=== PATIENT | female | born 2005 | race Caucasian/White ===

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

== ENCOUNTER 2023-12-04 08:04 | Emergency (ER) | payer BC, SELFPAY ==
[2023-12-04 08:20] VITALS: BP 117/78; PULSE 110; RESP 20; TEMP 37.1; O2SAT 100; BMI 21.8
--- NOTE | 2023-12-04 08:27 | ED_ITS ---
Discharge Plan Disposition Patient Disposition: Home, Self-Care Condition: Good Prescriptions Prescriptions: New ondansetron 4 mg Tablet,Disintegrating 4 mg PO Q8H PRN (Reason: Nausea) Qty: 20 0RF No Action levocetirizine 5 mg tablet 5 mg PO DAILY buspirone 5 mg tablet 5 mg PO BID Nexplanon 68 mg implant 68 mg subdermal ONCE spironolactone 50 mg tablet 50 mg PO DAILY Referrals Follow up/Referrals: Amado Villalobos MD [Primary Care Provider] - See instructions Activity Restrictions/Add. Instructions Additional Instructions/Restrictions: Drink extra fluids with and between meals. If you have difficulty drinking, try very small amounts of water or suck on ice chips. ? Avoid fruit juices, as these do not replace minerals and can actually increase diarrhea. ? Children and adults can use sports drinks to replenish electrolytes. Younger children and infants should use products formulated for children, like oral rehydration solutions. ? Eat food in small amounts and let your stomach recover. ? Get lots of rest. You may feel tired or weak. ? No greasy or fried foods for the next 24-48 hours BRAT diet Bananas Rice Apples and [place] ? Make sure to drink plenty of liquids ? Return if needed ? Straight to ER if any life threatening symptoms ? Zofran as prescribed ? You was given an outpatient order for diarrhea panel, please collect specimen and bring back to outpatient lab then call back to the [facility] or follow up with family doctor for results ? Follow up with family doctor in the next 48-72 hours if no improvement or any worsening of symptoms Clinical Impressions Clinical Impression: Viral syndrome Stand Alone Forms Stand Alone Forms: Work/School Release Instructions Patient Instructions: Diarrhea, Nausea and Vomiting-Adult, Ondansetron Discharge ED Provider: Heydi Bingham [facility] [place] HPI General Stated complaint: v/d Time Seen by Provider: 12/04/23 08:28 History of Present Illness Provider Complaint: Patient states that she started feeling bad on Benigno and has N/V/D over the weekend and would vomit after she would eat Denies pain States that she took a Phenergan on Monday and it did help with the nausea/vomiting States that today she was still feeling nauseous so she came in to get checked Related Data Home Medications Medication Instructions Recorded Confirmed buspirone 5 mg tablet 5 mg PO BID 01/14/22 12/04/23 levocetirizine 5 mg tablet 5 mg PO DAILY 01/14/22 12/04/23 etonogestrel 68 mg subdermal 68 mg subdermal ONCE 11/29/22 12/04/23 implant (Nexplanon) spironolactone 50 mg tablet 50 mg PO DAILY 11/29/22 12/04/23 Previous Rx's Medication Instructions Recorded ondansetron 4 mg disintegrating 4 mg PO Q8H PRN Nausea #20 tabs 12/04/23 tablet Allergies Allergy/AdvReac Type Severity Reaction Status Date / Time Penicillins [PENICILLINS] Allergy Mild Verified 04/07/23 09:55 [facility] Disclaimer: The information contained in this section may have been updated after the patient was seen, as this information can be updated by other users. 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 Unspecified Eustachian tube disorder, left ear Surgical History Hx of tonsillectomy Family History Other Cancer Hypertension Social History Smoking Status: Current every day smoker smoking status start date: vapes alcohol intake: never substance use type: denies use current occupational status: student Travel in the last 8 weeks: None household members: family housing: house caffeine: No ROS Obtained: Yes All systems reviewed & no additional complaints except as documented and Yes Systems reviewed as appropriate & no additional complaints except as documented Constitutional Constitutional: Reports system reviewed and no additional complaints, except as documented, Reports as per HPI, Denies body ache, Denies chills and Denies fever(s) Eyes Eyes: Reports system reviewed and no additional complaints, except as documented and Reports as per HPI ENT Ears, Nose, Mouth, and Throat: Reports system reviewed and no additional complaints, except as documented and Reports as per HPI Cardiovascular Cardiovascular: Reports system reviewed and no additional complaints, except as documented and Reports as per HPI Respiratory Respiratory: Reports system reviewed and no additional complaints, except as documented and Reports as per HPI Gastrointestinal Gastrointestingal: Reports system reviewed and no additional complaints, except as documented, as per HPI, diarrhea, nausea and vomiting Genitourinary Female Genitourinary: Reports system reviewed and no additional complaints, except as documented and Reports as per HPI Physical Exam General General appearance: alert and in no apparent distress ENT ENT exam: Present mucous membranes moist Respiratory Respiratory exam: Present normal lung sounds bilaterally; Absent respiratory distress or wheezes Cardiovascular Cardiovascular exam: Present regular rate, normal rhythm and normal heart sounds Abdominal Exam Abdominal exam: Present soft and normal bowel sounds; Absent distention or tenderness Neurological Exam Neurological exam: Present alert, oriented X3 and normal gait Medical Decision Making Darrion Inquiry Pt receiving controlled substance: No Darrion was queried for this patient: No Lab Data Lab results reviewed: Yes I reviewed the patient's lab results. Medical Decision Narrative: No vomiting after zofran drink gatoraid and kept it down
[2023-12-04 08:38] LABS: UTC Influenza A Antigen Negative (Negative); UTC Influenza B Antigen Negative (Negative); UTC Pregnancy Test, Urine Negative (Negative)
[2023-12-04] MEDS: ONDANSETRON 4MG ODT 4 MG SL (08:55)
[2023-12-04 09:10] VITALS: BP 117/78; PULSE 110; RESP 20; TEMP 37.1; O2SAT 100
[2023-12-05 09:43] LABS: Adenovirus F 40/41, stool Not Detected (NotDetected); Campylobacter Not Detected (NotDetected); Clostridium Difficile A/B, PCR Not Detected (NotDetected); Cryptosporidium Not Detected (NotDetected); Cyclospora Cayetanesis Not Detected (NotDetected); Entamoeba histolytica Not Detected (NotDetected); Enteroaggregative E coli Not Detected (NotDetected); Enteropathogenic E coli Not Detected (NotDetected); Enterotoxigenic E coli Not Detected (NotDetected); Giardia lamblia Not Detected (NotDetected); Norovirus Not Detected (NotDetected); Plesimonas Shigalloides, PCR Not Detected (NotDetected); Rotavirus A Not Detected (NotDetected); Salmonella, PCR Not Detected (NotDetected); Sapovirus Not Detected (NotDetected); Shiga-like toxin E coli Not Detected (NotDetected); Shigella Enterovasive E coli Not Detected (NotDetected); Vibrio Cholerae Not Detected (NotDetected); Vibrio, PCR Not Detected (NotDetected); Yersinia Entercolitica, PCR Not Detected (NotDetected)
[2023-12-07 03:40] LABS: Astrovirus Detected (NotDetected)
== END 2023-12-04 09:27 | disposition home or self-care (01) ==
PROVIDERS: Emergency Provider Nurse Practitioner; PCP Family Medicine
DX: A08.32 Astrovirus enteritis (principal); R11.2 Nausea with vomiting, unspecified; R19.7 Diarrhea, unspecified; F17.210 Nicotine dependence, cigarettes, uncomplicated
CPT/HCPCS: 81025; 87507; 87804; 99212; 99214; G0463

== ENCOUNTER 2023-12-07 09:08 | Outpatient (CLI) | payer BC, SELFPAY ==
--- NOTE | 2023-12-07 09:14 | US_ITS ---
FINAL REPORT CLINICAL HISTORY: RUQ ABD PAIN COMPARISON: None FINDINGS: Sonographic images of the right upper quadrant were obtained. The pancreas is partially obscured.The liver has an unremarkable appearance. The portal vein is at the upper limits of normal measuring 13 mm. The gallbladder appears normal without evidence of gallstones.There is no evidence of biliary ductal dilatation.The common duct measures 3 mm. Limited images of the right kidney are unremarkable. IMPRESSION: Upper limits of normal portal vein. Reviewed, Interpreted and Dictated by Alfredo Kelley III, MD Transcribed by Radha Rodrigez Authenticated and [facility]
== END 2023-12-07 23:59 ==
LOC: RAD 09:08
PROVIDERS: PCP Family Medicine; Visit Provider Nurse Practitioner
DX: R10.11 Right upper quadrant pain (principal)
CPT/HCPCS: 76705

== ENCOUNTER 2024-03-21 15:56 | Outpatient (CLI) | payer BC, SELFPAY ==
--- NOTE | 2024-03-21 15:56 | US_ITS ---
PROCEDURE INFORMATION: Exam: US Right Breast, Complete Exam date and time: 03/21/2024 4:03 PM Age: 18 years old Clinical indication: RT breast lump TECHNIQUE: Imaging protocol: Complete ultrasound of all four quadrants of the right breast and the retroareolar regions, including ultrasound of the axilla when performed. COMPARISON: No relevant prior studies available. FINDINGS: ULTRASOUND: Breast ultrasound findings: Sonographic images of the right breast including the retroareolar region, all 4 quadrants and the axilla do not demonstrate any cystic masses. Questionable hypoechoic mass versus island of dense fibroglandular structures in the right 7 o'clock axis 3 cm from the nipple measuring 0.4 x 0.4 x 0.3 cm. This is in the region of palpable concern. No architectural distortion or acoustical shadowing. No skin thickening or axillary adenopathy. IMPRESSION: Palpable abnormality likely correlates with an island of dense fibroglandular structures. Questionable solid mass within the region of palpable concern. Ultrasound-guided core biopsy is recommended to ensure a benign etiology. ASSESSMENT: BI-RADS Category 4: Suspicious.
== END 2024-03-21 23:59 | disposition home or self-care (01) ==
LOC: RAD 15:56
PROVIDERS: PCP Nurse Practitioner; Visit Provider Obstetrics & Gynecology
DX: N63.10 Unspecified lump in the right breast, unspecified quadrant (principal)
CPT/HCPCS: 76641

== ENCOUNTER 2024-04-22 08:14 | Outpatient (CLI) | payer BC, SELFPAY ==
--- NOTE | 2024-04-22 08:15 | US_ITS ---
FINAL REPORT CLINICAL HISTORY: RT BREAST NODULE -- Dr. Kaya Simmons -- biopsy was not performed FINDINGS: RIGHT BREAST ULTRASOUND HISTORY: Patient is 18 years old with a family history of breast cancer in a maternal great grandmother. She palpated an area at the 6 o'clock position of the right breast that has since decreased in size. Originally, this area measured approximately 3 cm in diameter. 4 mm hypoechoic structure was identified at the 6 o'clock position right breast and biopsy is recommended. FINDINGS: 6 o'clock position right breast there is an oval, hypoechoic lesion, complex cyst versus solid mass. No posterior shadowing is identified. There appears to be a calcification in the periphery. This is probably benign and does not explain the palpable abnormality. Findings discussed with the patient and her mother. 6-month follow-up ultrasound is recommended. If this is a cyst, this may resolve by the time of the follow-up. In the meanwhile, patient will continue to do a regular self breast exam to ensure that the palpable abnormality does not enlarge and no new palpable abnormalities develop. IMPRESSION: Probably benign 4 mm hypoechoic lesion 6:00 right breast BI-RADS 3: Probably benign. RECOMMENDATION: Right 6-month follow-up ultrasound. Annual screening mammography beginning at the age of 40, unless clincially indicated sooner Results sent to the patient in layman's terms. Authenticated and ERN
== END 2024-04-22 23:59 | disposition home or self-care (01) ==
LOC: RAD 08:15
PROVIDERS: PCP Nurse Practitioner; Visit Provider Obstetrics & Gynecology
DX: N63.15 Unspecified lump in the right breast, overlapping quadrants (principal)
CPT/HCPCS: 76642

== ENCOUNTER 2024-09-14 16:13 | Emergency (ER) | payer BC, SELFPAY ==
[2024-09-14] VITALS (7 sets, daily range): BP systolic 102–149; BP diastolic 56–71; PULSE 70–96; RESP 18–19; TEMP 36.8–37.1; O2SAT 98–100; BMI 22.4; BMI 22.3
--- NOTE | 2024-09-14 16:37 | EXP.UTC ---
Discharge Plan Prescriptions Prescriptions: No Action cetirizine 10 mg tablet 10 mg PO DAILY albuterol sulfate 90 mcg/actuation HFA aerosol inhaler 2 puff INHALATION Q6HP PRN (Reason: SOA) spironolactone 50 mg tablet 50 mg PO DAILY Referrals Follow up/Referrals: Provider,Referral, MD [Primary Care Provider] - See instructions Print Language Print Language: Iraqi Discharge ED [facility] HPI General Stated complaint: severe headache,nausea,vomiting Mode of Arrival: Ambulatory Source of Information: Patient Limitations: No Limitations Time Seen by Provider: 09/14/24 16:36 Description of Symptoms (Recalled from Triage Doc. by RN): PATIENT C/O SEVERE HEADACHE WITH NAUSEA AND VOMITING THAT STARTED YESTERDAY EVENING. SHE REPORTS THIS BEING THE WORSE HEADACHE SHE HAS EVER HAD. PATIENT DENIES VISION CHANGES OR HISTORY OF MIGRAINES HEENT Symptoms (Recalled from RN notes): Yes Resp Symptoms (Recalled from RN notes): No Skin Symptoms (Recalled from RN notes): No MS Symptoms (Recalled from RN notes): No Functional Status (Recalled from RN notes): WNL History of Present Illness Provider Complaint: 19-year-old female presents for severe headache with nausea and vomiting that started last night, with dizziness. Patient states she was unable to sleep due to pain and pressure. Patient states this is the worst headache she has ever had. Patient denies any vision changes or history of migraines. Related Data Home Medications ?Medication ?Instructions ?Recorded ?Confirmed albuterol sulfate 90 mcg/actuation 2 puff inhalation Q6HP PRN SOA 09/14/24 09/14/24 aerosol inhaler cetirizine 10 mg tablet 10 mg PO DAILY 09/14/24 09/14/24 spironolactone 50 mg tablet 50 mg PO DAILY 09/14/24 09/14/24 Allergies Allergy/AdvReac Type Severity Reaction Status Date / Time Penicillins (PENICILLINS) Allergy Mild Verified 05/09/24 15:52 Worker's Comp Is this a Worker's Comp case?: No [facility] Disclaimer: The information contained in this section may have been updated after the patient was seen, as this information can be updated by other users. 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 Hearing loss IBS (irritable bowel syndrome) Surgical History , HOSPICE CARE SALES CONSULTANT) Hx of tonsillectomy Family History , HOSPICE CARE SALES CONSULTANT) Cancer Hypertension Social History , HOSPICE CARE SALES CONSULTANT) Smoking Status: Current every day smoker smoking status start date: vapes alcohol intake: never substance use type: denies use current occupational status: student household members: family housing: house caffeine: No ROS Obtained: Yes Systems reviewed as appropriate & no additional complaints except as documented Physical Exam General General appearance: alert and in no apparent distress Eye Eye exam: Present normal appearance, PERRL and EOMI ENT ENT exam: Present normal exam, normal oropharynx, mucous membranes moist and TM's normal bilaterally Respiratory Respiratory exam: Present normal lung sounds bilaterally Cardiovascular Cardiovascular exam: Present regular rate and normal rhythm Neurological Exam Neurological exam: Present alert, oriented X3, CN II-XII intact and normal gait Skin Skin exam: Present warm and intact Medical Decision Making Medical Records Medical records reviewed: Yes I reviewed the patient's medical records. Screening: Per USPSTF and CDC recommendations, given the prevalence of disease in our region, it is our hospital?s policy to screen for HIV and viral Hepatitis for all patients aged 18 and over and those with ongoing risk factors. Darrion Inquiry Pt receiving controlled substance: No Darrion was queried for this patient: No Vital Signs: 09/14/24 16:25 Temperature 98.7 F Temperature Source Oral Pulse Rate [Left Brachial] 95 H Respiratory Rate 19 Blood Pressure [Left Arm] 149/60 H Blood Pressure Mean [Left Arm] 89 Blood Pressure Source [Left Arm] Automatic Cuff Blood Pressure Position [Left Arm] Sitting 02 Sat by Pulse Oximetry 99 Oxygen Delivery Method Room Air Medical Decision Narrative: Report to January Chris patient sent to the ER for evaluation and treatment
--- NOTE | 2024-09-14 16:42 | PC.NURSE ---
PATIENT SENT TO ER PER Destiney LINDA APRN FOR FURTHER EVALUATION. REPORT GIVEN TO Destiny MADERA RN BY Destiney LINDA APRN. PATIENT AMBULATED TO ER WITH [facility] STAFF AT THIS TIME
--- NOTE | 2024-09-14 16:55 | CT_ITS ---
PROCEDURE INFORMATION: Exam: CT Head Without Contrast Exam date and time: 09/14/2024 5:54 PM Age: 19 years old Clinical indication: Other: Headache; Additional info: Worst headache TECHNIQUE: Imaging protocol: Computed tomography of the head without contrast. Radiation optimization: All CT scans at this facility use at least one of these dose optimization techniques: automated exposure control; mA and/or kV adjustment per patient size (includes targeted exams where dose is matched to clinical indication); or iterative reconstruction. COMPARISON: No relevant prior studies available. FINDINGS: Brain: Normal. No hemorrhage. Unremarkable white matter. No mass effect. Cerebral ventricles: No ventriculomegaly. Paranasal sinuses: Visualized sinuses are unremarkable. No fluid levels. Mastoid air cells: Visualized mastoid air cells are well aerated. Bones: Unremarkable. No acute fracture. Soft tissues: Unremarkable. IMPRESSION: No acute intracranial abnormality.
[2024-09-14 17:07] LABS: Urine Pregnancy, HCG Qual. Negative (Negative)
[2024-09-14] MEDS: ACETAMINOPHEN 1,000MG/100ML VIAL 1000 MG IV (17:09)
[2024-09-14] MEDS: 0.9 % SODIUM CHLORIDE 1000ML 500 ML 999 ML IV (17:09)
[2024-09-14] MEDS: diphenhydrAMINE 50MG/ML VIAL 25 MG IV (17:09)
[2024-09-14] MEDS: ONDANSETRON 4MG/2ML VIAL 4 MG IV (17:09)
--- NOTE | 2024-09-14 17:26 | ED_ITS ---
<Statement entered by Justyna Cleveland DO - 09/14/24 18:49> I was consulted by the [facility], and we discussed the complexity of the problems being addressed. I approved the treatment and management plan for this patient's care in the emergency department, thus performing a substantive portion of the medical decision making. Justyna Cleveland DO Discharge Plan Disposition Patient Disposition: Home, Self-Care Condition: Good Prescriptions Prescriptions: No Action cetirizine 10 mg tablet 10 mg PO DAILY albuterol sulfate 90 mcg/actuation HFA aerosol inhaler 2 puff INHALATION Q6HP PRN (Reason: SOA) spironolactone 50 mg tablet 50 mg PO DAILY Referrals Follow up/Referrals: Provider,Referral, MD [Primary Care Provider] - See instructions Activity Restrictions/Add. Instructions Additional Instructions/Restrictions: Increase fluids and rest. If any worsening symptoms occur please return to the ED or call my office this week. Clinical Impressions Clinical Impression: Migraine Instructions Patient Instructions: DI for Migraine Print Language Print Language: Hebrew Discharge ED Provider: Justyna Cleveland General Adult HPI <Justyna Cleveland DO - Last Filed: 09/14/24 17:26> General Chief complaint: Headache Stated complaint: severe headache,nausea,vomiting Time Seen by Provider: 09/14/24 16:36 Mode of Arrival: Ambulatory Source of Information: Patient Limitations: No Limitations Description of Symptoms (Recalled from ER Triage Doc. by RN): headache started last night around 2200. unrelieved with otc meds, also having nausea Related Data Home Medications ?Medication ?Instructions ?Recorded ?Confirmed albuterol sulfate 90 mcg/actuation 2 puff inhalation Q6HP PRN SOA 09/14/24 09/14/24 aerosol inhaler cetirizine 10 mg tablet 10 mg PO DAILY 09/14/24 09/14/24 spironolactone 50 mg tablet 50 mg PO DAILY 09/14/24 09/14/24 Allergies Allergy/AdvReac Type Severity Reaction Status Date / Time Penicillins (PENICILLINS) Allergy Mild Verified 05/09/24 15:52 <Rebecca Spear (ED), PASTRY ARTIST - Last Filed: 09/14/24 18:44> History of Present Illness HPI narrative: 19-year-old female presents to the ED today for complaint of headache that started around 2200 last night. She says that she took ibuprofen and it did not help her headache. She is tearful because this is a headache that just will not go away and it scares her. She has had a sinus infection over the past week and she is taken the medications for that. She has been having nausea and vomiting today. No fevers but has had chills. No other associated signs or symptoms. [facility] <Justyna Cleveland DO - Last Filed: 09/14/24 17:26> [facility] Disclaimer: The information contained in this section may have been updated after the patient was seen, as this information can be updated by other users. 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 Hearing loss IBS (irritable bowel syndrome) Surgical History (Reviewed 09/14/24 @ 16:38 by Kimberly Verma ([facility]), PASTRY ARTIST) Hx of tonsillectomy Family History (Reviewed 09/14/24 @ 16:38 by Kimberly Verma ([facility]), PASTRY ARTIST) Cancer Hypertension Social History (Updated 09/14/24 @ 16:40 by Kimberly Verma ([facility]), PASTRY ARTIST) Smoking Status: Current every day smoker smoking status start date: vapes alcohol intake: never substance use type: denies use current occupational status: student Travel in the last 8 weeks: None household members: family housing: house caffeine: No Other Medical History Have you received the Flu Vaccine for this season: No Have you received the Pneumonia Vaccine: No <Rebecca Spear (ED), PASTRY ARTIST - Last Filed: 09/14/24 18:44> ROS Obtained: Yes Systems reviewed as appropriate & no additional complaints except as documented Constitutional Constitutional: Reports as per HPI Physical Exam <Justyna Cleveland DO - Last Filed: 09/14/24 17:26> General General appearance: alert and in no apparent distress <Rebecca Spear (ED), PASTRY ARTIST - Last Filed: 09/14/24 18:44> General General appearance: in distress Comment: Tearful due to fear with the headache Head Head exam: atraumatic and normocephalic Eye Eye exam: Present normal appearance, PERRL and EOMI ENT ENT exam: Present normal exam, normal oropharynx and mucous membranes moist Neck Neck exam: Present normal inspection, full ROM and trachea midline Chest Chest inspection: Present normal inspection Respiratory Respiratory exam: Present normal lung sounds bilaterally Cardiovascular Cardiovascular exam: Present regular rate, normal rhythm, normal heart sounds, +S1 and +S2 Abdominal Exam Abdominal exam: Present soft and normal bowel sounds Extremities Exam Extremities exam: Present normal inspection, full ROM and normal capillary refill Neurological Exam Neurological exam: Present alert, oriented X3 and normal gait Psychiatric Psychiatric exam: Present normal affect Skin Skin exam: Present warm, dry and intact Medical Decision Making <Justyna Cleveland, DO - Last Filed: 09/14/24 17:26> Medical Records Screening: Per USPSTF and CDC recommendations, given the prevalence of disease in our region, it is our hospital?s policy to screen for HIV and viral Hepatitis for all patients aged 18 and over and those with ongoing risk factors. Vital Signs: 09/14/24 16:25 09/14/24 16:47 09/14/24 17:01 Temperature 98.7 F 98.5 F Temperature Source Oral Oral Pulse Rate 96 H Pulse Rate [Left Brachial] 95 H 83 Respiratory Rate 19 18 Blood Pressure 121/63 Blood Pressure [Left Arm] 149/60 H 113/71 Blood Pressure Mean [Left Arm] 89 85 Blood Pressure Source [Left Arm] Automatic Cuff Blood Pressure Position [Left Arm] Sitting 02 Sat by Pulse Oximetry 99 100 98 Oxygen Delivery Method Room Air Room Air 09/14/24 17:30 09/14/24 18:00 09/14/24 18:30 Temperature Temperature Source Pulse Rate 70 71 72 Pulse Rate [Left Brachial] Respiratory Rate Blood Pressure 102/62 L 120/69 107/56 L Blood Pressure [Left Arm] Blood Pressure Mean [Left Arm] Blood Pressure Source [Left Arm] Blood Pressure Position [Left Arm] 02 Sat by Pulse Oximetry 100 100 100 Oxygen Delivery Method Lab Data Lab Results 09/14/24 16:37: Urine HCG, Qual Negative 09/14/24 17:11: HIV 1&2 Antibody Rapid Nonreactive Orders (Tests/Meds): ED MEDICATIONS Discontinued Medications Generic Name Dose Route Start Last Admin Trade Name Freq PRN Reason Stop Dose Admin Acetaminophen 1,000 mg 09/14/24 17:00 09/14/24 17:09 Acetaminophen 1,000mg/100ml Vial IV 09/14/24 17:01 1,000 mg ONCE ONE Administration Diphenhydramine HCl 25 mg 09/14/24 16:56 09/14/24 17:09 Diphenhydramine 50mg/Ml Vial IV 09/14/24 16:57 25 mg ONCE ONE Administration Sodium Chloride 500 mls @ 999 mls/hr 09/14/24 16:56 09/14/24 17:09 Sod Chlor 0.9% 1000ml Bag IV 09/14/24 17:26 999 mls/hr .Q31M ONE Administration Ketorolac Tromethamine 30 mg 09/14/24 18:06 09/14/24 18:18 Ketorolac 30mg/Ml Vial IV 09/14/24 18:07 30 mg ONCE ONE Administration Ondansetron HCl 4 mg 09/14/24 16:56 09/14/24 17:09 Ondansetron 4mg/2ml Vial IV 09/14/24 16:57 4 mg ONCE ONE Administration Prochlorperazine Edisylate 5 mg 09/14/24 18:06 09/14/24 18:17 Prochlorperazine 10mg/2ml Vial IV 09/14/24 18:07 5 mg ONCE ONE Administration ORDERS Category Date Time Status CT head/brain wo con Stat Cat Scan 09/14/24 16:55 Completed HIV (1&2) Antibody Rapid Stat Lab 09/14/24 17:11 Completed Hep C Ab with Reflex to RNA Stat Lab 09/14/24 17:11 Received Urine , HCG Qual. Stat Lab 09/14/24 16:37 Completed <Rebecca Spear (ED), PASTRY ARTIST - Last Filed: 09/14/24 18:44> Darrion Inquiry Pt receiving controlled substance: No Darrion was queried for this patient: No Vital Signs: 09/14/24 16:25 09/14/24 16:47 09/14/24 17:01 Temperature 98.7 F 98.5 F Temperature Source Oral Oral Pulse Rate 96 H Pulse Rate [Left Brachial] 95 H 83 Respiratory Rate 19 18 Blood Pressure 121/63 Blood Pressure [Left Arm] 149/60 H 113/71 Blood Pressure Mean [Left Arm] 89 85 Blood Pressure Source [Left Arm] Automatic Cuff Blood Pressure Position [Left Arm] Sitting 02 Sat by Pulse Oximetry 99 100 98 Oxygen Delivery Method Room Air Room Air 11/23/24 17:30 09/14/24 18:00 09/14/24 18:30 Temperature Temperature Source Pulse Rate 70 71 72 Pulse Rate [Left Brachial] Respiratory Rate Blood Pressure 102/62 L 120/69 107/56 L Blood Pressure [Left Arm] Blood Pressure Mean [Left Arm] Blood Pressure Source [Left Arm] Blood Pressure Position [Left Arm] 02 Sat by Pulse Oximetry 100 100 100 Oxygen Delivery Method Lab Data Lab Results 09/14/24 16:37: Urine HCG, Qual Negative 09/14/24 17:11: HIV 1&2 Antibody Rapid Nonreactive Orders (Tests/Meds): ED MEDICATIONS Discontinued Medications Generic Name Dose Route Start Last Admin Trade Name Freq PRN Reason Stop Dose Admin Acetaminophen 1,000 mg 09/14/24 17:00 09/14/24 17:09 Acetaminophen 1,000mg/100ml Vial IV 09/14/24 17:01 1,000 mg ONCE ONE Administration Diphenhydramine HCl 25 mg 09/14/24 16:56 09/14/24 17:09 Diphenhydramine 50mg/Ml Vial IV 09/14/24 16:57 25 mg ONCE ONE Administration Sodium Chloride 500 mls @ 999 mls/hr 09/14/24 16:56 09/14/24 17:09 Sod Chlor 0.9% 1000ml Bag IV 09/14/24 17:26 999 mls/hr .Q31M ONE Administration Ketorolac Tromethamine 30 mg 09/14/24 18:06 09/14/24 18:18 Ketorolac 30mg/Ml Vial IV 09/14/24 18:07 30 mg ONCE ONE Administration Ondansetron HCl 4 mg 09/14/24 16:56 09/14/24 17:09 Ondansetron 4mg/2ml Vial IV 09/14/24 16:57 4 mg ONCE ONE Administration Prochlorperazine Edisylate 5 mg 09/14/24 18:06 09/14/24 18:17 Prochlorperazine 10mg/2ml Vial IV 09/14/24 18:07 5 mg ONCE ONE Administration ORDERS Category Date Time Status CT head/brain wo con Stat Cat Scan 09/14/24 16:55 Completed HIV (1&2) Antibody Rapid Stat Lab 09/14/24 17:11 Completed Hep C Ab with Reflex to RNA Stat Lab 09/14/24 17:11 Received Urine , HCG Qual. Stat Lab 09/14/24 16:37 Completed Medical Decision Narrative: Insert review patient is a 19-year-old female presenting to the emergency department for evaluation of migraine. Patient is hemodynamically stable and nontoxic-appearing upon arrival, afebrile. Differential diagnosis includes migraine, headache among others. Workup will be conducted with CT scan. Init ial inventions include crystalloid bolus, analgesic. Initial workup reviewed by me remarkable for nothing acute likely migrainous in nature. Imaging informally interpreted by me and remarkable for nothing acute. Formal imaging read remarkable for nothing acute. Upon repeat evaluation patient's pain is improved. Critical Care <Rebecca Spear (ED), PASTRY ARTIST - Last Filed: 09/14/24 18:44> Critical Care Time Critical Care Time: No
[2024-09-14 18:01] LABS: HIV (1&2) Antibody Rapid NONREACTIVE (NONREACTIVE)
[2024-09-14] MEDS: PROCHLORPERAZINE 10MG/2ML VIAL 5 MG IV (18:17)
[2024-09-14] MEDS: KETOROLAC 30MG/ML VIAL 30 MG IV (18:18)
[2024-09-17 06:52] LABS: HCV Ab Non Reactive (Non Reactive)
== END 2024-09-14 18:51 | disposition home or self-care (01) ==
LOC: UTC 16:17 → ER 16:42
PROVIDERS: Nurse Practitioner; Emergency Provider Emergency Medicine
DX: G43.909 Migraine, unspecified, not intractable, without status migrainosus (principal); R11.2 Nausea with vomiting, unspecified
CPT/HCPCS: 70450; 81025; 86803; 87389; 96361; 96374; 96375; 99284; J0131; J0780; J1200; J1885; J2405; J7030

== ENCOUNTER 2024-09-20 08:29 | Emergency (ER) | payer BC, SELFPAY ==
--- NOTE | 2024-09-20 08:32 | XR_ITS ---
FINAL REPORT CLINICAL HISTORY: twisted ankle and foot, pain and swelling COMPARISON: None FINDINGS: AP, oblique, and lateral views of the right ankle were obtained. There is no fracture or dislocation. The ankle mortise is intact. Soft tissues are unremarkable. IMPRESSION: No acute osseous abnormality of the right ankle. Reviewed, Interpreted and Dictated by Rosa Linton MD Transcribed by Carly Ricardo Authenticated and [facility]
--- NOTE | 2024-09-20 08:32 | XR_ITS ---
FINAL REPORT CLINICAL HISTORY: twisted ankle and foot x 3 days ago, pain and swelling on lateral aspect of foot COMPARISON: None FINDINGS: AP, oblique and lateral views of the right foot were obtained. There is a nondisplaced fracture at the base of the fifth metatarsal. There is no additional acute osseous abnormality. The joint spaces are preserved. There is soft tissue edema along the lateral foot. IMPRESSION: Nondisplaced fracture of the base of the fifth metatarsal. Reviewed, Interpreted and Dictated by Rosa Linton MD Transcribed by Carly Ricardo Authenticated and . [facility]
[2024-09-20 09:01] VITALS: BP 120/78; PULSE 73; RESP 18; TEMP 37.2; O2SAT 98; BMI 21.6
--- NOTE | 2024-09-20 09:35 | ED_ITS ---
Discharge Plan Disposition Patient Disposition: Home, Self-Care Condition: Good Prescriptions Prescriptions: New ibuprofen 600 mg tablet 600 mg PO Q6HP PRN (Reason: Mild Pain) Qty: 30 0RF No Action spironolactone 50 mg tablet 50 mg PO DAILY cetirizine 10 mg tablet 10 mg PO DAILY buspirone 5 mg tablet PO DAILY Referrals Follow up/Referrals: Rebecca Spear APRN [Primary Care Provider] - See instructions Starla Del Valle DPM [Staff Physician] - See instructions Activity Restrictions/Add. Instructions Additional Instructions/Restrictions: Rest the extremity, apply ice for 15 minutes as tolerated three or four times per day, Elevate the extremity as tolerated while you are resting. Take ibuprofen for pain. I sent in a prescription to your pharmacy. Follow up with Dr. Del Valle (podiatry). I put in a referral but you need to call her office and schedule an appointment. Follow up with your regular doctor. GO TO THE ER FOR ANY WORSENING SYMPTOMS Clinical Impressions Clinical Impression: Closed nondisplaced fracture of fifth right metatarsal bone Qualifiers: Encounter type: initial encounter Qualified Code(s): S92.354A - Nondisplaced fracture of fifth metatarsal bone, right foot, initial encounter for closed fracture Instructions Patient Instructions: DI for Foot Fracture Print Language Print Language: Telugu Discharge ED Provider: Beau Marshall [facility] General Stated complaint: R foot injury Mode of Arrival: Ambulatory Source of Information: Patient Time Seen by Provider: 09/20/24 09:35 Description of Symptoms (Recalled from Triage Doc. by RN): RIGHT FOOT INJURY HEENT Symptoms (Recalled from RN notes): No Resp Symptoms (Recalled from RN notes): No Skin Symptoms (Recalled from RN notes): No MS Symptoms (Recalled from RN notes): Yes Functional Status (Recalled from RN notes): WNL History of Present Illness Provider Complaint: She states that 2 days ago she twisted her right foot and ankle. Since then she has had right foot and ankle pain, swelling and bruising. Related Data Home Medications ?Medication ?Instructions ?Recorded ?Confirmed buspirone 5 mg tablet mg PO DAILY 09/23/24 09/23/24 cetirizine 10 mg tablet 10 mg PO DAILY 09/23/24 09/23/24 spironolactone 50 mg tablet 50 mg PO DAILY 09/23/24 09/23/24 Previous Rx's ?Medication ?Instructions ?Recorded ibuprofen 600 mg tablet 600 mg PO Q6HP PRN Mild Pain #30 09/20/24 tabs Allergies Allergy/AdvReac Type Severity Reaction Status Date / Time Penicillins (PENICILLINS) Allergy Mild Verified 09/23/24 08:39 Worker's Comp Is this a Worker's Comp case?: No [facility] Disclaimer: The information contained in this section may have been updated after the patient was seen, as this information can be updated by other users. 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 Hearing loss IBS (irritable bowel syndrome) Surgical History Hx of tonsillectomy Family History Other Cancer Hypertension Social History Smoking Status: Current every day smoker smoking status start date: vapes alcohol intake: never substance use type: denies use current occupational status: student Travel in the last 8 weeks: None household members: family housing: house current occupation: Teacher caffeine: No ROS Obtained: Yes All systems reviewed & no additional complaints except as documented Constitutional Constitutional: Denies chills and Denies fever(s) Eyes Eyes: Denies eye discharge ENT Ears, Nose, Mouth, and Throat: Denies dizziness, Denies otalgia and Denies sore throat Cardiovascular Cardiovascular: Denies chest pain Respiratory Respiratory: Denies shortness of breath, Denies chest congestion, Denies cough, Denies stridor and Denies wheezing Gastrointestinal Gastrointestingal: Denies nausea or vomiting Musculoskeletal Musculoskeletal: Reports as per HPI Integumentary/Breasts Skin/Breast: Denies rash Neurologic Neurologic: Denies dizziness and Denies paresthesias Allergic/Immunologic Allergic/Immunologic: Denies wheezing Physical Exam General General appearance: alert and in no apparent distress Head Head exam: atraumatic, normocephalic and normal inspection Eye Eye exam: Present normal appearance, PERRL and EOMI ENT ENT exam: Present normal exam, normal oropharynx, mucous membranes moist, TM's normal bilaterally and normal external ear exam Neck Neck exam: Present normal inspection, full ROM and trachea midline; Absent meningismus or lymphadenopathy Chest Chest inspection: Present normal inspection and symmetric chest wall rise; Absent tenderness Respiratory Respiratory exam: Present normal lung sounds bilaterally; Absent respiratory distress Cardiovascular Cardiovascular exam: Present regular rate and normal rhythm; Absent JVD Abdominal Exam Abdominal exam: Present soft and normal bowel sounds; Absent distention, tenderness or guarding Extremities Exam Extremities exam: Present normal capillary refill; Absent calf tenderness Expanded Lower Extremity Exam Right: Knee exam: Present normal inspection, full ROM and knee extension intact; Absent tenderness Lower leg exam: Present normal inspection, full ROM and Achilles tendon intact; Absent tenderness or Homans' sign Ankle exam: Present full ROM, tenderness and swelling; Absent abrasion, laceration, ecchymosis, deformity, crepitus, dislocation, erythema, tenderness over talofibular lig or anterior draw sign Foot/toe exam: Present tenderness, swelling, ecchymosis and tenderness at base of 5th metatarsal; Absent full ROM, abrasion, laceration, deformity, crepitus, dislocation, erythema, amputation, puncture wound, foreign body, calcaneal tenderness, nail avulsion or subungual hematoma Neurovascular/Tendon exam: Present normal capillary refill, normal 2-point discrimination and normal fine/light touch; Absent pulse deficit, motor deficit, sensory deficit, tendon deficit, extremity cold to touch or pallor Gait: observed and limited by pain Back Exam Back exam: Present normal inspection; Absent tenderness Neurological Exam Neurological exam: Present alert and oriented X3 Psychiatric Psychiatric exam: Present normal affect and normal mood Skin Skin exam: Present warm, dry, intact and normal color Lymphatic Lymphatic Findings: no adenopathy Medical Decision Making Medical Records Medical records reviewed: No I reviewed the patient's medical records. Screening: Per USPSTF and CDC recommendations, given the prevalence of disease in our region, it is our hospital?s policy to screen for HIV and viral Hepatitis for all patients aged 18 and over and those with ongoing risk factors. Darrion Inquiry Pt receiving controlled substance: No Vital Signs: 09/20/24 09:01 Temperature 98.9 F Temperature Source Oral Pulse Rate [Left Radial] 73 Respiratory Rate 18 Blood Pressure [Left Arm] 120/78 Blood Pressure Mean [Left Arm] 92 02 Sat by Pulse Oximetry 98 Orders (Tests/Meds): ORDERS Category Date Time Status XR ankle RT min 3V Stat Exams 09/20/24 08:32 Completed XR foot RT min 3V Stat Exams 09/20/24 08:32 Completed Radiology Data #1: Image(s): Foot/Toes Image Reviewed: Yes I reviewed the patient's radiology image and Yes I have reviewed radiologist's interpretation Preliminary Findings: Abnormal Accession No. : [id number] Patient Name / ID : CINDY HOFF / [id number] Exam Date : 09/20/2024 08:31:43 ( Final ) Study Comment : Sex / Age : F / 19Y Creator : ROSA JOSEPH Dictator : Financial Risk Manager : Fur Mixer : ROSA JOSEPH Approver2 : Report Date : 09/20/2024 09:28:51 My Comment : FINAL REPORT CLINICAL HISTORY: twisted ankle and foot x 3 days ago, pain and swelling on lateral aspect of foot COMPARISON: None FINDINGS: AP, oblique and lateral views of the right foot were obtained. There is a nondisplaced fracture at the base of the fifth metatarsal. There is no additional acute osseous abnormality. The joint spaces are preserved. There is soft tissue edema along the lateral foot. IMPRESSION: Nondisplaced fracture of the base of the fifth metatarsal. Reviewed, Interpreted and Dictated by Rosa Joseph MD Transcribed by Carly Ricardo Authenticated and [facility] Procedures Risk/Benefits of Procedure(s) Were Explained: Yes Orthopedic Splinting/Casting Injury #1: Side: right Lower Extremity Injury Location: lower leg, ankle and foot Lower Extremity Immobilizer: boot orthosis and applied by nurse/dr siu Post Cast/Splinting Neuro Status: intact and no change Post Cast/Splinting Vasc Status: intact and no change
[2024-09-20 09:55] VITALS: BP 120/78; PULSE 73; RESP 18; TEMP 37.2
== END 2024-09-20 10:15 | disposition home or self-care (01) ==
PROVIDERS: Emergency Provider Nurse Practitioner Family; PCP Nurse Practitioner
DX: S92.354A Nondisplaced fracture of fifth metatarsal bone, right foot, initial encounter for closed fracture (principal); X50.0XXA Overexertion from strenuous movement or load, initial encounter
CPT/HCPCS: 29515; 73610; 73630; 99214; G0382

== ENCOUNTER 2024-10-08 08:29 | Outpatient (CLI) | payer OTHER, SELFPAY ==
--- NOTE | 2024-10-08 08:34 | XR_ITS ---
FINAL REPORT CLINICAL HISTORY: Foot pain, 2 week fx f/u COMPARISON: 09/20/2024 FINDINGS: RIGHT FOOT 3 views of the right foot were obtained. There is a transverse, nondisplaced fracture at the base of the fifth metatarsal, similar to prior exam. Remaining osseous structures are intact. Visualized joint spaces are normally aligned. Soft tissues are unremarkable. IMPRESSION: Transverse, nondisplaced fracture at the base of the fifth metatarsal, similar to prior exam. Reviewed, Interpreted and Dictated by David Negro MD Transcribed by Trice Bonner Authenticated and [facility]
== END 2024-10-08 23:59 | disposition home or self-care (01) ==
LOC: RAD 08:32
PROVIDERS: PCP Nurse Practitioner; Visit Provider Podiatrist
DX: M79.671 Pain in right foot (principal)
CPT/HCPCS: 73630

== ENCOUNTER 2024-10-31 08:37 | Outpatient (CLI) | payer BC, SELFPAY ==
--- NOTE | 2024-10-31 08:42 | XR_ITS ---
FINAL REPORT CLINICAL HISTORY: right 5th met fracture FINDINGS: Right foot Three views were obtained. There is a transverse lucency through the base of the fifth metatarsal consistent with healing fracture. IMPRESSION: Healing fracture as above. Reviewed, Interpreted and Dictated by Judah Umanzor MD Transcribed by Tania Chiu Authenticated and [facility]
== END 2024-10-31 23:59 | disposition home or self-care (01) ==
PROVIDERS: PCP Nurse Practitioner; Visit Provider Podiatrist
DX: M79.671 Pain in right foot (principal); S92.354A Nondisplaced fracture of fifth metatarsal bone, right foot, initial encounter for closed fracture
CPT/HCPCS: 73630

== ENCOUNTER 2024-11-08 06:57 | Outpatient (CLI) | payer OTHER, SELFPAY ==
--- NOTE | 2024-11-08 06:58 | CT_ITS ---
FINAL REPORT TECHNIQUE: Thin section axial CT images with coronal and sagittal reformats were performed. This study was performed with techniques to keep radiation doses as low as reasonably achievable (ALARA). Individualized dose reduction techniques using automated exposure control or adjustment of mA and/or kV according to the patient's size were employed. CLINICAL HISTORY: evaluate fifth metatarsal fracture COMPARISON: None FINDINGS: CT RIGHT FOOT: There is a transverse fracture of the lateral half of the base of the fifth metatarsal. There is 1 mm of separation between the bony fragments. The margins of the lucency are sclerotic, consistent with a nonunion. The joint is intact. 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 Reviewed, Interpreted and Dictated by David Negro MD Transcribed by Eloina Shay Authenticated and [facility]
== END 2024-11-08 23:59 | disposition home or self-care (01) ==
LOC: RAD 06:58
PROVIDERS: PCP Nurse Practitioner; Visit Provider Podiatrist
DX: M79.671 Pain in right foot (principal); S92.354D Nondisplaced fracture of fifth metatarsal bone, right foot, subsequent encounter for fracture with routine healing
CPT/HCPCS: 73700

== ENCOUNTER 2024-12-20 08:37 | Outpatient (CLI) | payer OTHER, BC, SELFPAY ==
--- NOTE | 2024-12-20 08:40 | XR_ITS ---
FINAL REPORT CLINICAL HISTORY: foot pain 11-26-24 fx of base of 5th metatarsal, no surgery COMPARISON: 10/31/2024 FINDINGS: RIGHT FOOT Three views demonstrate a transverse fracture line of the base of the fifth metatarsal which remains evident when compared to the prior exam. There is slight sclerosis of the fracture line now present. There is a radiolucent gap between the fracture fragments of 1 cm. The joint spaces appear normal. 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 Reviewed, Interpreted and Dictated by David Negro MD Transcribed by Eloina Shay Authenticated and . [facility]
== END 2024-12-20 23:59 | disposition home or self-care (01) ==
LOC: RAD 08:39
PROVIDERS: PCP Nurse Practitioner; Visit Provider Podiatrist
DX: M79.671 Pain in right foot (principal); S92.354K Nondisplaced fracture of fifth metatarsal bone, right foot, subsequent encounter for fracture with nonunion
CPT/HCPCS: 73630

== ENCOUNTER 2025-01-12 11:30 | Outpatient (CLI) | payer BC, SELFPAY | END 2025-01-12 23:59 | disposition home or self-care (01) | LOC: LAB.DROPOF 01-13 13:05 | PROVIDERS: PCP Student in an Organized Health Care Education/Training Program; Visit Provider Student in an Organized Health Care Education/Training Program | DX: N39.0 Urinary tract infection, site not specified (principal) | CPT/HCPCS: 87086 ==

== ENCOUNTER 2025-01-20 17:00 | Outpatient (RCR) | payer OTHER, BC, SELFPAY ==
--- NOTE | 2025-01-06 18:30 | HMH.PTOPEV ---
PT Outpatient Evaluation Rehab PT Outpatient Evaluation Start: 01/06/25 16:01 Freq: Status: Active Protocol: Document 01/06/25 16:03 JAMIEMIKEL (Rec: 01/06/25 18:30 PAUL [id number]) E-signed By Justyna Nicolas, PT Outpatient Therapy Subjective History Subjective History Pt is a 19 y/o female who reports she fractured her base of her right 5th metatarsal by stepping off a step stool and severely rolling her ankle at work on 09/17/24. Pt reports she was NWB in a boot from September to November with progression to WBAT in the boot. Pt states she recently transitioned to FWB in a tennis shoe 2 weeks ago and returned to work on 12/31 with good tolerance. Pt denies true pain, but reports lateral tenderness/discomfort at the end of the day. Pt also reports weakness of the R ankle,, difficulty standing on one leg when she is getting dressed in the morning and discomfort with twisting/ pivoting on the R leg. Pt reports she also like to dance with her kids at work which she has tried without noted pain but reports slight instability of the R ankle with this. 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 Pt states she is using a bone stimulator as prescribed to assist with healing. Pt denies swelling or paresthesia. Pt denies further comorbidities to report. Pt reports she returns to Dr. Del Valle on for her next follow-up visit. Occupation: [employer] New diagnosis of cancer in past 12 No months? Chief Complaint Pain,Weakness Symptom Type Ache,Dull Symptoms Relieved By Rest/Positioning,Ice Symptoms Aggravated By Physical Activity,Twisting Current Functional Limitations Dressing,Recreation Activity, Stairs,Balance Symptom Description Intermittent Level of pain today (0-10) 5 Pain scale - at its best (0-10) 0 Pain scale - at its worst (0-10) 7 Hip/Knee Eval MMT right Hip Flexion Strength Grade 4 Good Hip Abduction Strength Grade 4 Good Hip Adduction Strength Grade 4 Good Hip Extension Strength Grade 4 Good Ankle/Foot Eval Gait Observation General Gait Pattern Observation No Deviations/Normal Assistive Device Ambulation Assistive Device None Palpation Tenderness right Ankle/Foot Palpation Overall Comment no TTP noted ROM Ankle/Foot Dorsiflexion w/Knee Extended 15 Active Range Motion (degrees) Ankle/Foot Plantar Flexion Active Range 40 of Motion (degrees) Ankle/Foot Eversion Active Range of 12 Motion (degrees) Ankle/Foot Inversion Active Range of 25 Motion (degrees) MMT Ankle Dorsiflexion Strength Grade 4- Good- Ankle Plantarflexion Strength Grade 4- Good- Foot Eversion Strength Grade 4- Good- Foot Inversion Strength Grade 4- Good- Special Tests Ankle Anterior Drawer Test Negative Right Talar Tilt Test Negative Right Ankle Posterior Drawer Test Negative Right Foot/Heel Tap/Percussion Test Negative Right Lower Extremity Functional Index Activities Today, do you or would you have any difficulty at all with: a.Any of your usual work, housework or No difficulty school activities b. Your usual hobbies, recreational or No difficulty sporting activities c. Getting into or out of the bath No difficulty d. Walking between rooms No difficulty e. Putting on your shoes or socks No difficulty f. Squatting No difficulty g. Lifting an object, like a bag of No difficulty groceries from the floor h. Performing light activities around No difficulty your home i. Performing heavy activities around No difficulty your home j. Getting into or out of a car No difficulty k. Walking 2 blocks A little bit of difficulty l. Walking a mile Moderate difficulty m. Going up or down 10 stairs (about 1 No difficulty flight of stairs) n. Standing for 1 hour No difficulty o. Sitting for 1 hour No difficulty p. Running on even ground A little bit of difficulty q. Running on uneven ground Moderate difficulty r. Making sharp turns while running fast Moderate difficulty s. Hopping No difficulty t. Rolling over in bed No difficulty LEFI Score Lower Extremity Functional Index Score 72 Outpatient Therapy Assessment Impairments Problems/Impairmments Impaired Range of Motion, Impaired Strength,Impaired Dressing,Impaired Stair Climbing,Impaired Recreational Activities,Impaired Running, Impaired Jumping,Impaired Work Activities,Impaired Balance, Subjective C/O Pain,Impaired Self Care/Self Management Prognosis Rehab Potential Good Clinical Impression Consistent with Diagnosis Yes Short Term Goals Number of Weeks 3 Increase Strength Yes: Improve R ankle MMT by half grade to assist with function/stability Improve Gait Pattern without Assistive No Device Improve Ability to Dress Self Yes: perform lower body dressing without LOB/pain to assist with ADLs Improve Balance Yes: Tandem unstable surface EO x30 without LOB to dec fall/reinjury risk Decrease Subjective C/O Pain Yes: Improve pain at worst to 5/10 to improve overall QOL Improve Self Care/Self Management Yes Patient to be Ind w/ HEP Yes Crutching Contractor Goals Number of Weeks 6 Increase Range of Motion Yes: Improve R ankle PF AROM to 45 Increase Strength Yes: Improve RLE MMT to 4+-5/5 grossly to assist with function Improve Ability to Climb Stairs Yes: 1 flight reciprocally without pain to assist with community navigation Improve Balance Yes: SLS unstable surface EO x30 without LOB to dec fall/ reinjury risk Improve LEFI Score Yes Decrease Subjective C/O Pain Yes: Improve pain at worst to 3/10 to improve overall QOL Outpatient Therapy Plan of Care Treatment Plan May Include Therapeutic Exercise Including Home Yes Exercise Program Manual Therapy Techniques Yes Neuromuscular Re-education Yes Therapeutic Activities to Return to Yes Previous Functional/Work Level Gait Training Yes ADL/Self Care Education Yes Thermal Modalities Yes Electrical Stimulation Yes Ultrasound/Phonophoresis Yes Iontophoresis Yes Orthotics/Bracing/Splinting Yes Vasopneumatic Compression Pump Yes Massage Yes Manual Lymphatic Drainage Yes Wound Care Yes Eval/Re-Eval Yes Frequency Times per week 2 Duration Number of Weeks 4-6 Addendums This patient is a candidate for social No or vocational rehab? Patient/Guardian verbally acknowledges Yes understanding of treatment program and consents to further treatment? Patient/Guardian verbally acknowledges Yes understanding of diagnosis, prognosis and goals for treatment? Eval Complexity PT Charges 20403 - Low Complexity Shoulder/Elbow Eval Shoulder Objective Measurements Elbow Objective Measurements PHYSICIAN CERTIFICATION: I certify the specified therapy services for Josh Lopes are required, authorized, and reviewed every 30 days.
== END 2025-01-20 23:59 | disposition home or self-care (01) ==
LOC: PT 17:00
PROVIDERS: Visit Provider Podiatrist
DX: S93.491A Sprain of other ligament of right ankle, initial encounter (principal); S92.354K Nondisplaced fracture of fifth metatarsal bone, right foot, subsequent encounter for fracture with nonunion
CPT/HCPCS: 97110; 97112; 97163

== ENCOUNTER 2025-01-31 17:10 | Outpatient (CLI) | payer BC, SELFPAY ==
--- NOTE | 2025-01-31 17:15 | XR_ITS ---
PROCEDURE INFORMATION: Exam: XR Right Foot Complete; Alignment Exam date and time: 01/31/2025 5:16 PM Age: 19 years old Clinical indication: Pain; Foot; Right 5th metatarsal fracture back in aug 2024 TECHNIQUE: Imaging protocol: Radiologic exam of the right foot. Views: 3 or more views. COMPARISON: CR XR FOOT WT BEARING RT 3V 12/20/2024 8:46 AM FINDINGS: Bones/joints: There is no evidence of acute fracture.There is no evidence of malalignment or dislocation. Fifth metatarsal fracture has healed in good alignment. Soft tissues: Normal. IMPRESSION: 1. There is no evidence of acute fracture.There is no evidence of malalignment or dislocation. 2. Fifth metatarsal fracture has healed in good alignment.
== END 2025-01-31 23:59 | disposition home or self-care (01) ==
LOC: RAD 17:12
PROVIDERS: PCP Nurse Practitioner; Visit Provider Podiatrist
DX: M79.671 Pain in right foot (principal); S92.354K Nondisplaced fracture of fifth metatarsal bone, right foot, subsequent encounter for fracture with nonunion
CPT/HCPCS: 73630

== ENCOUNTER 2025-02-05 17:00 | Outpatient (RCR) | payer OTHER, BC, SELFPAY ==
--- NOTE | 2025-02-05 17:30 | HMH.RHREAS ---
Rehab Reassessment Rehab OP Re-assessment Start: 01/23/25 17:15 Freq: Status: Active Protocol: Document 02/05/25 17:23 PHORNE (Rec: 02/05/25 17:30 PHORNE [id number]) E-signed By Saúl Mitchell, PT Lower Extremity Functional Index Activities Today, do you or would you have any difficulty at all with: a.Any of your usual work, housework or No difficulty school activities b. Your usual hobbies, recreational or No difficulty sporting activities c. Getting into or out of the bath No difficulty d. Walking between rooms No difficulty e. Putting on your shoes or socks No difficulty f. Squatting A little bit of difficulty g. Lifting an object, like a bag of No difficulty groceries from the floor h. Performing light activities around No difficulty your home i. Performing heavy activities around A little bit of difficulty your home j. Getting into or out of a car No difficulty k. Walking 2 blocks No difficulty l. Walking a mile A little bit of difficulty m. Going up or down 10 stairs (about 1 No difficulty flight of stairs) n. Standing for 1 hour No difficulty o. Sitting for 1 hour No difficulty p. Running on even ground No difficulty q. Running on uneven ground A little bit of difficulty r. Making sharp turns while running fast A little bit of difficulty s. Hopping A little bit of difficulty t. Rolling over in bed No difficulty LEFI Score Lower Extremity Functional Index Score 74 Rehab Re-assessment Subjective Subjective Pt reports her foot feels much better overall, denies any pain or new issues of note. No c/o with any activity except standing on her R leg and putting her other leg in her pants. Objective Objective Notes MMT: R ankle grossly 5/5 throughout without pain. AROM R ankle (in deg): DF 0-14 , PF 0-41, INV 0-40, EVER 0-21 . TTP: 0/4 R lateral foot at this time. LEFS 74 this date vs 72 on IE Assessment Progress Assessment Progressing as Expected Assessment Notes Pt has shown significant improvement in R ankle strength, R ankle ROM, and balance in SLS on the R LE. She has no c/o pain with any normal daily activity and only mild difficulty with difficult balance tasks for every day life. Currently she is appropriate to d/c form skilled therapy services with continuation of HEP as advanced. Patient goals met ST/6 LT/6 Plan Plan Will d/c at this time with HEP . Frequency of Therapy 0 Duration of therapy 0 Time and Billing Re-Eval Time 13 Charge for PT reassessment? Yes PHYSICIAN CERTIFICATION: I certify the specified therapy services for [place] are required, authorized, and reviewed every 30 days.
== END 2025-02-05 23:59 | disposition home or self-care (01) ==
LOC: PT 17:00
PROVIDERS: Visit Provider Podiatrist
DX: S93.491A Sprain of other ligament of right ankle, initial encounter (principal); S92.354K Nondisplaced fracture of fifth metatarsal bone, right foot, subsequent encounter for fracture with nonunion
CPT/HCPCS: 97110; 97112; 97164

== ENCOUNTER 2025-04-07 17:16 | Outpatient (CLI) | payer OTHER, SELFPAY ==
--- OUTSIDE RECORDS SUMMARY | 2025-04-07 17:23 | XMS_ITS | Encounter Summary ---
Author Organization Healthcare Address [address] [place] [address] Care Team Providers Care Extension Division Director Name Role Phone Pcp, No Primary Care Provider Unavailabl e Encounter Details Date Type Department Care Team (Late st Contact Info) Description 03/21/2024 Orders Only External Location [address] [place] [address] Susannah Ventura, DO [address] [facility] [address], [place] [id number] Social History Tobacco Use Types Packs/Day Years Used Date Smoking Tobacco: Never Assessed Comments Unknown Sex and Gender Information Value Date Recorded Sex Assigned at Not on file Legal Sex Female 8:45 AM EDT Gender Identity Not on file Sexual Orientation Not on file documented as of this encounter Plan of Treatment Upcoming Encounters Date Type Department Care Team (Late st Contact Info) Description 08/25/2025 11:00 AM EST Office Visit Obstetrics & Gynecology [address] [place] [address] Becca George, ARRESTING GEAR OPERATOR, CNM [address] [facility] [address] [place] [address] documented as of this encounter Procedures Procedure Name Priority Date/Time Associated Diagnosis Comments US BREAST OUTSIDE IMAGES UPLOAD 03/21/2024 4:03 PM EDT documented in this encounter Results * US Breast Imaging Outside Images Upload (03/21/2024 4:03 PM EDT) Anatomical Region Laterality Modality Mammography 03/21/2024 4:03 PM EDT us Susannah Ventura DO IMG BI PROCEDURES Final Result documented in this encounter Visit Diagnoses Not on filedocumented in this encounter Care Teams Extension Division Director Relationship Specialty Start Date End Date Pcp, No [address] [place] [address] PCP - General Family Medicine 07/23/24 documented as of this encounter
--- OUTSIDE RECORDS SUMMARY | 2025-04-07 17:23 | XMS_ITS | Clinical Summary ---
Author Organization [facility] Address [address] [place] [address] Care Team Providers Care Senior Talent Acquisition Specialist Name Role Phone Pcp, No Primary Care Provider Unavailabl e Allergies Active Allergy Reactions Criticality Noted Date Comments Penicillins Hives,Itching,Rash Medium 2003 Medications busPIRone (Buspar) 5 MG tablet 07/22/2024 Active levocetirizine (Xyzal) 5 MG tablet 10/09/2023 Active spironolactone (Aldactone) 50 MG tablet 04/08/2022 Active Active Problems No known active problems Family History Medical History Relation Name Comments Drug abuse Father Jaime breast lump Father's Sister 2 precancero us breast lumps Heart disease Maternal Grandfather Alcohol abuse Maternal Grandmother Beci Lung cancer Maternal Grandmother Beci Throat cancer Maternal Grandmother Beci Breast cancer Maternal Great-Grandmother Drug abuse Mother Randa No Known Problems Mother's Brother 1 No Known Problems Mother's Brother 2 No Known Problems Paternal Grandfather No Known Problems Paternal Grandmother Breast cancer Paternal Great-Grandmother Relation Name Status Comments Father Jaime Alive Father's Sister Alive Maternal Grandfather Maternal Grandmother Beci Maternal Great-Grandmother Other Mother Randa Alive Mother's Brother 1 Alive Mother's Brother 2 Alive Paternal Grandfather Paternal Grandmother Paternal Great-Grandmother Other Social History Tobacco Use Types Packs/Day Years Used Date Smoking Tobacco: Never Smokeless Tobacco: Current Tobacco Cessation:Ready to Q uit: Not Asked; Counseling Given: Not Answered Comments:Vaping Alcohol Use Standard Drinks/Week Comments Not Currently 2 (1 standard drink = 0.6 oz pur e alcohol) PHQ-2 Answer Date Recorded Patient Health Questionnaire-2 Score 0 08/09/2024 Comments No Sex and Gender Information Value Date Recorded Sex Assigned at Not on file Legal Sex Female 8:45 AM EDT Gender Identity Not on file Sexual Orientation Not on file Last Filed Vital Signs Vital Sign Reading Time Taken Comments Blood Pressure 112/64 08/09/2024 3:15 PM EDT Pulse 102 08/09/2024 2:39 PM EDT Temperature 37.1 C (98.7 F) 08/09/2024 2:39 PM EDT Respiratory Rate 14 08/09/2024 2:39 PM EDT Oxygen Saturation 100% 08/09/2024 2:39 PM EDT Inhaled Oxygen Concentration - - Weight 62.6 kg (138 lb) 08/21/2024 3:01 PM EDT Height 160 cm (5' 3 ) 08/21/2024 3:01 PM EDT Body Mass Index 24.45 08/21/2024 3:01 PM EDT Plan of Treatment Upcoming Encounters Date Type Department Care Team (Late st Contact Info) Description 08/25/2025 11:00 AM EST Office Visit Obstetrics & Gynecology [address] [place] [address] Becca George, EXCAVATING CONTRACTOR, CNM [address] [facility] [address] [place] [address] Health Maintenance Due Date Last Done Comments [facility]-Chlamydia and Gonorrhea Screening 2003 [facility]-HIV Screening 2003 [facility]-Hepatitis C Screening 2003 [facility]-Infant/Child/Adol SDOH Screenings 2003 HPV Vaccines (1 - 3-dose series) 2018 [facility]- SDOH Screenings 2021 [facility]-Adult SDOH Screenings 2021 [facility]-DTaP,Tdap,and Td Vaccines (7 - Td or Tdap) 03/06/2024 03/06/2014, 01/18/2008, 10/20/2004, Additional history exists [id number] Vaccine ( season) 2024 [facility]-Pap Smear 2024 [facility]-Influenza Vaccine (Season Ended) 2025 [facility]-Depression Screening 08/09/2025 08/09/2024 [facility]-Zoster Vaccines (1 of 2) 2053 01/18/2008, 2004 [facility]-HIB Vaccines Completed 2004, , 2003 [facility]-Pneumococcal Vaccine: Pediatrics (0 to 5 Years) and At-Risk Patients (6 to 49 Years) Aged Out 10/20/2004, 2004, 2003, Additional history exists No longer eligible based on patient's age to complete this topic [facility]-Hepatitis B Vaccines Completed 008, 2004, 2003, Additional history exists [facility]-IPV Vaccines Completed 01/18/2008, , 2003, Additional history exists [facility]-Varicella Vaccines Completed 01/18/2008, 2003 [facility]-Hepatitis A Vaccines Completed 08/02/2018, 10/2017 [facility]-Rotavirus Vaccines Aged Out No lo nger eligible based on patient's age to complete this topic Insurance [employer] Care Teams Senior Talent Acquisition Specialist Relationship Specialty Start Date End Date Christen, [place] [address] PCP - General Family Medicine 07/23/24
--- OUTSIDE RECORDS SUMMARY | 2025-04-07 17:23 | XMS_ITS | Encounter Summary ---
Author Organization Healthcare Address [address] [place] [address] Care Team Providers Care Onyx Chip Terrazzo Worker Name Role Phone Pcp, No Primary Care Provider Unavailabl e Encounter Details Date Type Department Care Team (Late st Contact Info) Description 04/22/2024 Orders Only External Location [address] [place] [address] Susannah Ventura, DO [address] [facility] [address] [place], [place] [id number] Social History Tobacco Use Types Packs/Day Years [...] EST Office Visit Obstetrics & Gynecology [address] [place] [address] Becca George, PYROMETER MECHANIC, CNM [address] [facility] [address] [place] [address] documented as of this encounter Procedures Procedure Name Priority Date/Time Associated Diagnosis Comments US BREAST OUTSIDE IMAGES UPLOAD 04/22/2024 8:56 AM EDT documented in this encounter Results * US Breast Imaging Outside Images Upload (04/22/2024 8:56 AM EDT) Anatomical Region Laterality Modality Mammography 04/22/2024 8:56 AM EDT us Susannah Ventura DO IMG BI PROCEDURES Final Result documented in this encounter Visit Diagnoses Not on filedocumented in this encounter Care Teams Onyx Chip Terrazzo Worker Relationship Specialty Start Date End Date Pcp, No [address] [place] [address] PCP - General Family Medicine 07/23/24 documented as of this encounter
--- NOTE | 2025-04-07 17:26 | XR_ITS ---
PROCEDURE INFORMATION: Exam: XR Right Foot Complete; Alignment Exam date and time: 04/07/2025 5:26 PM Age: 19 years old Clinical indication: Pain; Foot; Right; Additional info: Right foot FX. PT states final f/u on right foot TECHNIQUE: Imaging protocol: Radiologic exam of the right foot. Views: 3 or more views. COMPARISON: CR XR FOOT WT BEARING RT 3V 01/31/2025 5:16 PM FINDINGS: Bones/joints: Unremarkable. No acute fracture. Joint spaces are preserved. No dislocation or subluxation. Soft tissues: Unremarkable. IMPRESSION: No acute radiographic findings identified.
== END 2025-04-07 23:59 | disposition home or self-care (01) ==
LOC: RAD 17:21
PROVIDERS: PCP Nurse Practitioner; Visit Provider Podiatrist
DX: S92.354A Nondisplaced fracture of fifth metatarsal bone, right foot, initial encounter for closed fracture (principal)
CPT/HCPCS: 73630

== ENCOUNTER 2025-05-19 15:47 | Outpatient (CLI) | payer BC, SELFPAY ==
--- NOTE | 2025-05-19 | XR_ITS ---
FINAL REPORT CLINICAL HISTORY: knee pain COMPARISON: None FINDINGS: AP, lateral and oblique views of the left knee were obtained. There is no prior exam for comparison. There is no acute osseous abnormality of the left knee. The joint space is preserved. The soft tissues are normal. There is no joint effusion. IMPRESSION: No acute osseous abnormality of the left knee. Reviewed, Interpreted and Dictated by Rosa Linton MD Transcribed by Eloina Shay Authenticated and . [facility]
--- OUTSIDE RECORDS SUMMARY | 2025-05-19 15:51 | XMS_ITS | Clinical Summary ---
Author Organization [facility] Address [address] [id number] Care Team Providers Care Stone Chimney Mason Name Role Phone Pcp, No Primary Care [...] EST Office Visit Obstetrics & Gynecology [address] [place] [address] Becca George, FUTURES TRADER, CNM [address] [facility] [address] [place] [address] Health Maintenance Due Date Last Done Comments [facility]-Chlamydia and Gonorrhea Screening 2003 [facility]-HIV Screening 2003 [facility]-Hepatitis C Screening 2003 [facility]-Infant/Child/Adol SDOH Screenings 2003 HPV Vaccines (1 - 3-dose series) 2018 [facility]- SDOH Screenings 2021 [facility]-Adult SDOH Screenings 2021 [facility]-DTaP,Tdap,and Td Vaccines (7 - Td or Tdap) 03/06/2024 03/06/2014, 01/18/2008, 10/20/2004, Additional history exists [id number] Vaccine ( season) 2024 [facility]-Pap Smear 2024 [facility]-Influenza Vaccine (#1) 2025 [facility]-Depression Screening 08/09/2025 08/09/2024 [facility]-Zoster Vaccines [...] complete this topic Insurance [employer] Care Teams Stone Chimney Mason Relationship Specialty Start Date End Date Christen, [place] [address] PCP - General Family Medicine 07/23/24
--- OUTSIDE RECORDS SUMMARY | 2025-05-19 15:51 | XMS_ITS | Encounter Summary ---
Author Organization Healthcare Address [address] [place] [address] Care Team Providers Care Box Puller Name Role Phone Pcp, No Primary Care Provider Unavailabl e Encounter Details Date Type Department Care Team (Late st Contact Info) Description 04/22/2024 Orders Only External Location [address] [place] [address] Susannah Ventura, DO [address]10 [facility] [address] [place], [place] [id number] Social History Tobacco Use Types Packs/Day Years [...] EST Office Visit Obstetrics & Gynecology [address] [place] [address] Becca George, BUILDING EQUIPMENT INSPECTOR, CNM [address] [facility] [address] [place] [address] documented as of this encounter [...] on filedocumented in this encounter Care Teams Box Puller Relationship Specialty Start Date End Date Pcp, No [address] [place] [address] PCP - General Family Medicine 07/23/24 documented as of this encounter
--- OUTSIDE RECORDS SUMMARY | 2025-05-19 15:51 | XMS_ITS | Clinical Summary ---
Author Organization [facility] Address [address] [place] [address] Care Team Providers Care Charge Attendant Name Role Phone Provider, No Known Primary Care Provider Unavail able Social History Tobacco Use Types Packs/Day Years Used Date Smoking Tobacco: Never Assessed Abuse Screen Answer Date Recorded Unsafe at Home or Work/School Not on file Feels Threatened by Someone? Not on file 02/2024 Does Anyone Keep You from Co ntacting Others or Doint Things Outside the Home? Not on file 06/27/2024 Physical Sign of Abuse Present Not on file 0 06/27/2024 Housing Stability Answer Date Recorded Current Living Arrangements Not on file 02/2024 Potentially Unsafe Housing Conditions Not on sera e 06/27/2024 Family and Community Support Answer Young e Recorded Help with Day-to-Day Activities Not on file 06/27/2024 Lonely or Isolated Not on file 06/27/2024 Employment Answer Date Recorded Do you want help finding or keeping work or a kristi b? Not on file 06/27/2024 Disabilities Answer Date Recorded Concentrating, Remembering, or Making Decisions Difficulty Not on file 06/27/2024 Doing Errands Independently Difficulty Not on fi le 06/27/2024 Education Answer Date Recorded Help with school or training? Not on file Preferred Language Not on file 06/27/2024 Comments Unknown Sex and Gender Information Value Date Recorded Sex Assigned at Not on file Legal Sex Female 11:15 AM EDT Gender Identity Not on file Sexual Orientation Not on file Plan of Treatment Health Maintenance Due Date Last Done Comments ANNUAL PHYSICAL 2003 Annual Gynecologic Pelvic and Breast Exam 2003 HEPATITIS C SCREENING 2003 HPV VACCINES (1 - 3-dose series) 2018 MENINGOCOCCAL B VACCINE (1 of 2 - Standard) 2019 TDAP/TD VACCINES (2 - Td or Tdap) 03/06/2024 03/06/2014 COVID-19 Vaccine (2023- season) 2024 INFLUENZA VACCINE 07/23/2025 Pneumococcal Vaccine 0-49 Aged Out 2003, 2004, 2003, Additional history exists No longer eligible based on patient's age to complete this topic MENINGOCOCCAL VACCINE Completed 02/19/2020, 018 Insurance [facility] PPO Care Teams Charge Attendant Relationship Specialty Start Date End Date Provider, No Known [facility] [place] [address] PCP - General 06/28/24
--- OUTSIDE RECORDS SUMMARY | 2025-05-19 15:51 | XMS_ITS | Encounter Summary ---
Author Organization Healthcare Address [address] [place] [address] Care Team Providers Care Matrix Bath Operator Name Role Phone Pcp, No Primary Care Provider Unavailabl e Encounter Details Date Type Department Care Team (Late st Contact Info) Description 03/21/2024 Orders Only External Location [address] [place] [address] Susannah Ventura, DO 1210 [facility] [address] [place], [place] [id number] Social History Tobacco Use Types Packs/Day Years [...] EST Office Visit Obstetrics & Gynecology [address] [place] [address] Becca George, NEGATIVE NOTCHER, CNM [address] [facility] [address] [place] [address] documented as of this encounter [...] on filedocumented in this encounter Care Teams Matrix Bath Operator Relationship Specialty Start Date End Date Pcp, No [address] [place] [address] PCP - General Family Medicine 07/23/24 documented as of this encounter
== END 2025-05-19 23:59 | disposition home or self-care (01) ==
LOC: RAD 15:49
PROVIDERS: PCP Nurse Practitioner; Visit Provider Nurse Practitioner Family
DX: M25.562 Pain in left knee (principal)
CPT/HCPCS: 73562

== ENCOUNTER 2025-07-01 15:55 | Outpatient (RCR) | payer BC, SELFPAY | END 2025-07-21 23:59 | disposition home or self-care (01) | LOC: PT 15:55 | PROVIDERS: PCP Nurse Practitioner; Visit Provider Nurse Practitioner | DX: S83.92XA Sprain of unspecified site of left knee, initial encounter (principal); M76.892 Other specified enthesopathies of left lower limb, excluding foot | CPT/HCPCS: 97161 ==

== ENCOUNTER 2025-07-30 17:00 | Outpatient (RCR) | payer BC, SELFPAY | END 2025-07-30 23:59 | disposition home or self-care (01) | LOC: PT 17:00 | PROVIDERS: PCP Nurse Practitioner; Visit Provider Nurse Practitioner | DX: S83.92XA Sprain of unspecified site of left knee, initial encounter (principal); M76.892 Other specified enthesopathies of left lower limb, excluding foot | CPT/HCPCS: 97110; 97530 ==